=== PATIENT | male | born 1980 | race Caucasian/White ===

== ENCOUNTER → 2022-11-07 17:31 | Outpatient (CLI) | payer OTHER, MEDICAID, SELFPAY ==
--- NOTE | 2022-11-07 | DI.MRI.S_ITS ---
PROCEDURE: MR SHOULDER LT WO/W CON INDICATIONS: pain in lt shoulder, abnormal x ray TECHNIQUE: Noncontrast oblique coronal T1 spin echo and T2 fast spin echo with fat saturation, oblique sagittal T1 spin echo and T2 fast spin echo with fat saturation, axial T1 spin echo and T2 fast spin echo with fat saturation through the shoulder. Post-contrast oblique coronal, oblique sagittal, and axial T1 spin echo with fat saturation through the shoulder. COMPARISON: None. FINDINGS: Image quality: Excellent. Rotator cuff: Distal supraspinatus tendinosis and low-grade bursal surface partial-thickness tear near musculotendinous junction is seen. Distal infraspinatus and subscapularis tendons are intact. No full-thickness rotator cuff tendon rupture. Sagittal images demonstrate very mild supraspinatus muscle atrophy. Bones and bursae: Very mild acromioclavicular joint osteoarthritic changes are noted with joint space narrowing and subchondral sclerosis. No fracture or dislocation. Lobulated and heterogeneously T2 hyperintense and T1 hypointense structure involving medullary space of medial left femoral head and neck measures up to 1.9 x 1.3 x 2.6 cm in size and show mild heterogeneous contrast enhancement likely represent benign enchondroma. No associated surrounding marrow edema or cortical disruption is seen. No abnormal periosteal reaction. No other area of marrow signal abnormalities. Capsule and soft tissues: No suspicious soft tissue enhancement. Labrum is grossly intact. The long head of the biceps tendon demonstrates normal location and morphology. The rotator interval appears normal, without fibrosis. The coracohumeral ligament is normal in thickness. IMPRESSION: 1. 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 No worrisome feature is noted at this time. Clinical and radiographic follow-up is recommended. 2. Mild acromioclavicular joint osteoarthritis. No fracture or dislocation. No other area of abnormal intraosseous enhancement. 3. Distal supraspinatus tendinosis. Low-grade bursal surface partial-thickness tear involving supraspinatus near musculotendinous junction. No full-thickness rotator cuff tendon rupture. Very mild supraspinatus muscle atrophy. 4. No evidence of focal labral tear. 5. No enhancing soft tissue mass or drainable fluid collection. Dictated by: Ramiro Ding M.D. on 11/08/2022 at 10:00 Approved by: Ramiro Ding M.D. on 11/08/2022 at 10:07
== END ==
PROVIDERS: Referring Provider Family Medicine; Visit Provider Family Medicine
DX: M75.112 Incomplete rotator cuff tear or rupture of left shoulder, not specified as traumatic (principal); M19.012 Primary osteoarthritis, left shoulder; R93.6 Abnormal findings on diagnostic imaging of limbs; M25.512 Pain in left shoulder; G89.29 Other chronic pain
CPT/HCPCS: 73223; A9579